=== PATIENT | male | born 1955 | race Caucasian/White ===

== ENCOUNTER → 2017-04-19 | Outpatient (CLI) | payer OTHER ==
[~2017-04-19] MED LIST: IOPAMIDOL 370 MG/ML 200 ML INFUS..BTL INJ ONE; SODIUM CHLORIDE 0.9% 250ML 250 ML ONE
--- NOTE | 2017-04-23 08:38 | Diagnostic Imaging Report ---
EXAMINATION: CT of the abdomen and pelvis with and without contrast. TECHNIQUE: Spiral CT images of the abdomen and pelvis were performed from the lung bases to the lesser trochanters before and after the intravenous administration of 150 cc of Isovue-370 and the oral administration of water per CT urogram protocol. Imaging was performed in the prone position.. Coronal and sagittal reformatted images were obtained. COMPARISON: None. CLINICAL HISTORY:Hematuria DISCUSSION: ABDOMEN/PELVIS: LOWER THORAX:Unremarkable. HEPATOBILIARY: Dystrophic calcification in segment 7. Otherwise no focal hepatic lesion. No intrahepatic biliary ductal dilatation. Status post cholecystectomy. SPLEEN: No splenomegaly. Subcentimeter hypoattenuating lesion projecting posteriorly from the spleen is too small to further characterize though may represent a small cyst. PANCREAS: No focal masses or ductal dilatation. ADRENALS: No adrenal nodules. KIDNEYS/URETERS: Subcentimeter hypoattenuating lesion projects from the upper pole of the right kidney, too small to further characterize though likely represent small cyst. 1 cm cyst within the posterior aspect of the right upper pole. Additional subcentimeter hypoattenuating foci within both kidneys, also too small to further characterize though likely represent additional small cysts. No solid renal mass lesion. 6 mm nonobstructing calculus in the interpolar left kidney seen on series 3 image 86. 4-5 mm calculus at the left right ureteropelvic junction seen on series 3 image 94, without hydronephrosis. 3-4 mm nonobstructing right lower pole calculus seen on series 3 image 96. No additional renal, ureteral, or bladder calculi. No additional filling defects in the upper collecting systems, ureters, or urinary bladder. PELVIC ORGANS/BLADDER: A large right inguinal hernia contains a portion of the right inferolateral urinary bladder, which is collapsed with mild thickening of the wall. The urinary bladder is otherwise unremarkable. The prostate is enlarged measuring 5.7 cm transversely. PERITONEUM/RETROPERITONEUM: No ascites or pneumoperitoneum. LYMPH NODES: No pelvic sidewall, retroperitoneal, or mesenteric lymphadenopathy. VESSELS: Limited evaluation secondary to contrast timing for CT urogram protocol. There is mild atherosclerotic calcification of the abdominal aorta, branch vessels, and iliac arterial systems without aneurysmal dilatation. GI TRACT: There are diverticula scattered along the descending and sigmoid colon without wall thickening or adjacent inflammation. The appendix is normal. There is no small bowel dilatation to suggest obstruction. Incidental note of a posterior mediastinal or distal esophageal submucosal lipoma measuring approximate 4.5 cm as seen on series 6 image 21. BONES AND SOFT TISSUE: No osseous destructive lesions. Multilevel degenerative disc changes and facet arthropathy of the lumbar spine. Large right inguinal hernia contains fat and a segment of the urinary bladder as discussed above. IMPRESSION: 4-5 mm right ureteropelvic junction calculus without hydronephrosis. 3-4 mm nonobstructing right lower pole renal calculus. 6 mm nonobstructing left interpolar renal calculus. Right renal cyst; additional subcentimeter hypoattenuating lesions are too small to further characterize but likely represent cysts as well. Large right inguinal hernia contains fat and a portion of the right inferolateral urinary bladder, with associated wall thickening. Atherosclerotic vascular disease. Large bowel diverticulosis without evidence of diverticulitis. Signed by: Dr. Koby Dan M.D. on 04/23/2017 8:35 AM
== END ==
LOC: CT 16:53
PROVIDERS: ATTEND Urology
DX: R31.9 Hematuria, unspecified (principal)
CPT/HCPCS: 74178; J7050; Q9967

== ENCOUNTER → 2017-07-10 | Outpatient (CLI) | payer OTHER ==
--- NOTE | 2017-07-10 07:32 | Diagnostic Imaging Report ---
PROCEDURE:X-RAY ABDOMEN - KUB COMPARISON:CT abdomen and pelvis 04/23/2017. INDICATIONS:MICROSCOPIC HEMATURIA FINDINGS: 6 mm calculus projects over the left renal shadow, similar in appearance to that described on the comparison CT from March 2017. Additional smaller renal calculi described on the comparison CT are not identified by plain radiography. No mass effect or organomegaly. Surgical clips related to prior cholecystectomy. Regional skeletal structures are intact. CONCLUSION: 6 mm calculus projects over the left renal shadow. Additional small renal calculi described on the comparison CT examination are not identified by plain radiography. Dictated by: Koby Dan M.D. on 07/10/2017 at 7:33 Electronically approved by: Koby Dan M.D. on 07/10/2017 at 7:33
== END ==
LOC: RAD 06:44
PROVIDERS: ATTEND Urology
DX: R31.9 Hematuria, unspecified (principal)
CPT/HCPCS: 74018

== ENCOUNTER 2017-07-22 07:20 | Observation (INO) | payer OTHER ==
[~2017-07-22] VITALS: Ht 188 cm; Wt 127.0 kg
--- OUTSIDE RECORDS SUMMARY | 2017-07-22 07:23 | XMS REPORT ---
Author Author [facility] Address Unknown Phone Unavailable Care Team Providers Care Pot Builder Name Role Phone FRANCO TEJADA Unavailable Unavailable Problems This patient has no known problems. Allergies, Adverse Reactions, Alerts This patient has no known allergies or adverse reactions. Medications This patient has no known medications. Results Test Description Test Time Test Comments Text Results Atomic Results Result Comments ABDOMEN-1VIEW (KUB) [place] [address] Patient Name: DESIREE KIRAN MR #: [id number] : 1955 Age/Sex: 61/M Req # : [id number] Adm Physician: Ordered by: FRANCO TEJADA MD Report #: [id number] Location: [facility] Room/Bed: Procedure: [id number] DX/ABDOMEN-1VIEW (KUB) Exam Date: Exam Time: REPORT STATUS: Signed PROCEDURE: X-RAY ABDOMEN - KUB COMPARISON: CT abdomen and pelvis 04/23/2017. INDICATIONS: MICROSCOPIC HEMATURIA FINDINGS: 6 mm calculus projects over the left renal shadow, similar in appearance to that described on the comparison CT from March 2017. Additional smaller renal calculi described on the comparison CT are not identified by plain radiography. No mass effect or organomegaly. Surgical clips related to prior cholecystectomy. Regional skeletal structures are intact. CONCLUSION: 6 mm calculus projects over the left renal shadow. Additional small renal calculi described on the comparison CT examination are not identified by plain radiography. Dictated by: Jose Martínez M.D. on 07/10/2017 at 7:33 Electronically approved by: Jose Martínez M.D. on 07/10/2017 at 7:33 Dictated By: JOSE MARTÍNEZ MD 2 Transcribed By: LEONORA on 07/10/17732 COPY TO: FRANCO TEJADA MD CT ABDOMEN/PELVIS WOW [place] [address] Patient Name: DESIREE KIRAN MR #: [id number] : 1955 Age/Sex: 61/M Req # : [id number] Adm Physician: Ordered by: FRANCO TEJADA MD Report #: [id number] Location: CT Room/Bed: Procedure: [id number] CT/CT ABDOMEN/PELVIS WO Exam Date: 04/19/17 Exam Time: 1825 REPORT STATUS: Signed EXAMINATION: CT of the abdomen and pelvis with and without contrast. TECHNIQUE: Spiral CT images of the abdomen and pelvis were performed from the lung bases to the lesser trochanters before and after the intravenous administration of 150 cc of Isovue-370 and the oral administration of water per CT urogram protocol. Imaging was performed in the prone position.. Coronal and sagittal reformatted images were obtained. COMPARISON: None. CLINICAL HISTORY: Hematuria DISCUSSION: ABDOMEN/PELVIS: LOWER THORAX: Unremarkable. HEPATOBILIARY: Dystrophic calcification in segment 7. Otherwise no focal hepatic lesion. No intrahepatic biliary ductal dilatation. Status post cholecystectomy. SPLEEN: No splenomegaly. Subcentimeter hypoattenuating lesion projecting posteriorly from the spleen is too small to further characterize though may represent a small cyst. PANCREAS: No focal masses or ductal dilatation. ADRENALS: No adrenal nodules. KIDNEYS/URETERS: Subcentimeter hypoattenuating lesion projects from the upper pole of the right kidney, too small to further characterize though likely represent small cyst. 1 cm cyst within the posterior aspect of the right upper pole. Additional subcentimeter hypoattenuating foci within both kidneys, also too small to further characterize though likely represent additional small cysts. No solid renal mass lesion. 6 mm nonobstructing calculus in the interpolar left kidney seen on series 3 image 86. 4-5 mm calculus at the left right ureteropelvic junction seen on series 3 image 94, without hydronephrosis. 3-4 mm nonobstructing right lower pole calculus seen on series 3 image 96. No additional renal, ureteral, or bladder calculi. No additional filling defects in the upper collecting systems, ureters, or urinary bladder. PELVIC ORGANS/BLADDER: A large right inguinal hernia contains a portion of the right inferolateral urinary bladder, which is collapsed with mild thickening of the wall. The urinary bladder is otherwise unremarkable. The prostate is enlarged measuring 5.7 cm transversely. PERITONEUM/RETROPERITONEUM: No ascites or pneumoperitoneum. LYMPH NODES: No pelvic sidewall, retroperitoneal, or mesenteric lymphadenopathy. VESSELS: Limited evaluation secondary to contrast timing for CT urogram protocol. There is mild atherosclerotic calcification of the abdominal aorta, branch vessels, and iliac arterial systems without aneurysmal dilatation. GI TRACT: There are diverticula scattered along the descending and sigmoid colon without wall thickening or adjacent inflammation. The appendix is normal. There is no small bowel dilatation to suggest obstruction. Incidental note of a posterior mediastinal or distal esophageal submucosal lipoma measuring approximate 4.5 cm as seen on series 6 image 21. BONES AND SOFT TISSUE: No osseous destructive lesions. Multilevel degenerative disc changes and facet arthropathy of the lumbar spine. Large right inguinal hernia contains fat and a segment of the urinary bladder as discussed above. IMPRESSION: 4-5 mm right ureteropelvic junction calculus without hydronephrosis. 3-4 mm nonobstructing right lower pole renal calculus. 6 mm nonobstructing left interpolar renal calculus. Right renal cyst; additional subcentimeter hypoattenuating lesions are too small to further characterize but likely represent cysts as well. Large right inguinal hernia contains fat and a portion of the right inferolateral urinary bladder, with associated wall thickening. Atherosclerotic vascular disease. Large bowel diverticulosis without evidence of diverticulitis. Signed by: Dr. Jose aMrtínez M.D. on 04/23/2017 8:35 AM Dictated By: JOSE MARTÍNEZ MD 4 Transcribed By: KEYA on 04/23/17834 COPY TO: FRANCO TEJADA MD
[2017-07-22] MEDS ORDERED: KETOROLAC TROMETHAMINE 30 MG/ML VIAL IV STA (07:47)
[2017-07-22] MEDS ORDERED: ONDANSETRON HCL INJ 2 MG/ML VIAL IV STA (07:47)
[2017-07-22] MEDS ORDERED: DICYCLOMINE HCL 20 MG/2 ML VIAL IM ONE (08:00)
[2017-07-22] MEDS ORDERED: MORPHINE SULFATE 2 MG/ML SYR ONE (08:02)
[2017-07-22 08:14] LABS: BASOPHILS % 0.6 % (0.0-1.0); EOSINOPHILS # (AUTO) 0.1 (0.0-0.4); EOSINOPHILS % 1.7 % (0.0-6.0); HEMATOCRIT 46.7 % (38.2-49.6); HEMOGLOBIN 16.6 g/dL (14.0-18.0); LYMPHOCYTES # (AUTO) 2.3 (1.0-3.2); LYMPHOCYTES % 32.3 % (18.0-39.1); MEAN CORPUSCULAR HEMOGLOBIN 35.9 pg (28-32); MEAN CORPUSCULAR HGB CONC 35.5 g/dL (31-35); MEAN CORPUSCULAR VOLUME 100.9 fL (81-99); MONOCYTES # (AUTO) 0.7 (0.2-0.8); MONOCYTES % 10.2 % (4.4-11.3); NEUTROPHILS # (AUTO) 3.8 (2.1-6.9); NEUTROPHILS % 54.8 % (38.7-80.0); PLATELET COUNT 250 x10e3/uL (140-360); RED BLOOD COUNT 4.63 x10e6/uL (4.3-5.7); RED CELL DISTRIBUTION WIDTH 13.1 % (11.7-14.4)
[2017-07-22] MEDS ORDERED: MORPHINE SULFATE 5 MG/ML VIAL IV ONE ×2 (08:15→10:00)
[2017-07-22] MEDS ORDERED: MORPHINE SULFATE 2 MG/ML SYR IV SCH ×2 (08:30→10:00)
[2017-07-22 08:37] LABS: ALBUMIN 3.9 g/dL (3.5-5.0); ALBUMIN/GLOBULIN RATIO 1.3 (0.8-2.0); ANION GAP 12.9 mmol/L (8-16); CALCIUM 9.1 mg/dL (8.4-10.2); CREATININE, SERUM 1.23 mg/dL (0.72-1.25); POTASSIUM 3.9 mmol/L (3.5-5.1)
--- NOTE | 2017-07-22 09:56 | Diagnostic Imaging Report ---
PROCEDURE: CT ABDOMEN AND PELVIS WITHOUT CONTRAST COMPARISON:[facility], CT, CT ABDOMEN/PELVIS WOW, 04/19/2017, 18:21. INDICATIONS:Right flank pain TECHNIQUE: Stone protocol Volumetric CT abdomen and pelvis. No intravenous or enteric contrast. Multiplanar reformatted images. DLP: 1145.78 FINDINGS: Mild bibasilar interstitial scar. Lung bases otherwise clear. Normal heart size. Liver: Normal Gallbladder: Cholecystectomy. No bile duct dilation. Pancreas: Normal Spleen: Normal Adrenal glands: Normal Urinary bladder: The right inferior margin of the urinary bladder extends into a large right inguinal hernia. Otherwise, normal. Prostate and seminal vesicles: Normal Kidneys: Right: 0.3 and 0.4 x 0.7 cm stones at the distal right ureter (image 161, series 3; i93,s401) with accompanying mild hydronephrosis. No additional right kidney stones. Left: 0.6 cm nonobstructive superior pole stone (image 61, series 3). Otherwise, normal Bowel: Normal caliber. Normal appendix. Sigmoid diverticulosis. No large fat periesophageal hiatal hernia. Peritoneum: Normal Vasculature: Mild scattered atherosclerosis. Otherwise, normal caliber. Lymph nodes: Normal Skeleton: Intact. Mild multilevel degenerative disc disease and facet arthropathy. Soft tissues: Large fat and bladder containing right inguinal hernia. No small left inguinal hernia. CONCLUSION: 1. 2 stones at the very distal segment of the right ureter. The smaller proximal stone measures 0.3 cm and the larger distal stone measures 0.4 x 0.7 cm. Accompanying mild hydronephrosis. 2. Fat and urinary bladder containing right inguinal hernia. 3. Diverticulosis. Dictated by: David Blunt M.D. on 07/22/2017 at 9:57 Electronically approved by: David Blunt M.D. on 07/22/2017 at 9:57
[2017-07-22] MEDS ORDERED: HYDROMORPHONE 1MG/1ML INJ IV STA (10:38)
[2017-07-22] MEDS ORDERED: HYOSCYAMINE SULFATE 0.5 MG/ML AMP IV ONE (10:45)
[2017-07-22] MEDS ORDERED: HYOSCYAMINE SULFATE 0.5 MG/ML AMP IV PRN (15:45)
[2017-07-22] MEDS ORDERED: HYDROMORPHONE 1MG/1ML INJ IV PRN (15:45)
[2017-07-22] MEDS ORDERED: ONDANSETRON HCL INJ 2 MG/ML VIAL IV PRN ×2 (15:45)
[2017-07-22] MEDS: SODIUM CHLORIDE 0.9% 1000ML 1,000 ML IV SCH (17:04)
[2017-07-22] MEDS: HYDROMORPHONE 1MG/1ML INJ IV PRN (17:04)
--- NOTE | 2017-07-22 17:58 | History and Physical ---
CLINICAL HISTORY: This is a 61-year-old white man, a patient of Dr. Abundio Hernandez, who is seen in the emergency room of [facility] because of right flank pain due to a right kidney stone. This patient is known to have benign prostatic hypertrophy followed by Dr. Lau. He had hematuria and was found to have kidney stones bilaterally. Lithotripsy is being planned for the 12th of this month. In the meantime, he developed severe right flank pains, came to the emergency room, was found to have right ureterolithiasis. He is being admitted for pain control. PAST MEDICAL HISTORY: Is remarkable for benign prostatic hypertrophy. He is on terazosin 5 mg p.o. per day. He is on no other medications. PERSONAL AND SOCIAL HISTORY: He has not smoked for 30 years. Denies drinking. 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 FAMILY HISTORY: Mother had leukemia. Two sisters with ovarian cancer and lymphoma respectively. Father had dementia. REVIEW OF SYSTEMS: Noncontributory. PHYSICAL EXAMINATION: GENERAL: He is alert, coherent, appears to be comfortable. VITAL SIGNS: Stable. CARDIOVASCULAR: Jugular veins were not distended. S1 and S2 were regular. There are no appreciable murmurs. LUNGS: Clear. ABDOMEN: Soft. Bowel sounds are present. EXTREMITIES: Show no cyanosis, clubbing or edema. LABORATORY STUDIES: Electrolytes are normal, chloride 109, glucose 127. White count 6900, hemoglobin 16.6, MCV is 100.9. Urinalysis is not available. CT scan showed the kidney stones. IMPRESSION: 1. Right flank pain with kidney stones with history of bilateral nephrolithiasis with lithotripsy already scheduled. 1. Benign prostatic hypertrophy. RECOMMENDATIONS: Consult urology, Dr. Damon, with Dr. Lau out of town at this point. Continue his terazosin. Job#: [id number] EV cc:JOSIE BHATKA MD cc:JESSICA DAMON MD
[2017-07-22] MEDS: TERAZOSIN HCL 5 MG CAP PO SCH (21:26)
[2017-07-22 21:53] LABS: COLOR,URINE YELLOW (YELLOW)
[2017-07-22 21:54] LABS: BILIRUBIN,URINE NEGATIVE (NEGATIVE); CLARITY,URINE SL CLOUDY (CLEAR); KETONES,URINE NEGATIVE (NEGATIVE); LEUKOCYTE ESTERASE ,URINE NEGATIVE (NEGATIVE); NITRITE,URINE NEGATIVE (NEGATIVE); PROTEIN,URINE DIPSTICK NEGATIVE (NEGATIVE); URINE UROBILINOGEN 0.2 mg/dL (0.2 - 1)
[2017-07-22 21:59] VITALS: BP 131/79
[2017-07-22 22:06] LABS: BACTERIA,URINE FEW /HPF; EPITHELIAL CELLS,URINE MODERATE /LPF
[2017-07-22 22:11] VITALS: BP 131/79
[2017-07-22 22:46] VITALS: BP 131/79
[2017-07-23] VITALS (8 sets, daily range): BP systolic 106–152; BP diastolic 56–85
[2017-07-23] MEDS: SODIUM CHLORIDE 0.9% 1000ML 1,000 ML IV SCH ×4 (00:17→15:35)
[2017-07-23 06:48] LABS: BASOPHILS % 0.4 % (0.0-1.0); EOSINOPHILS # (AUTO) 0.1 (0.0-0.4); EOSINOPHILS % 1.6 % (0.0-6.0); HEMATOCRIT 43.3 % (38.2-49.6); HEMOGLOBIN 14.9 g/dL (14.0-18.0); LYMPHOCYTES # (AUTO) 2.1 (1.0-3.2); LYMPHOCYTES % 27.5 % (18.0-39.1); MEAN CORPUSCULAR HGB CONC 34.4 g/dL (31-35); MEAN CORPUSCULAR VOLUME 104.6 fL (81-99); MONOCYTES # (AUTO) 0.8 (0.2-0.8); MONOCYTES % 10.8 % (4.4-11.3); NEUTROPHILS # (AUTO) 4.6 (2.1-6.9); NEUTROPHILS % 59.3 % (38.7-80.0); PLATELET COUNT 216 x10e3/uL (140-360); RED BLOOD COUNT 4.14 x10e6/uL (4.3-5.7); RED CELL DISTRIBUTION WIDTH 13.4 % (11.7-14.4)
[2017-07-23 07:18] LABS: ALANINE AMINOTRANSFERASE 21 IU/L (0-55); ALBUMIN 3.2 g/dL (3.5-5.0); ALBUMIN/GLOBULIN RATIO 1.2 (0.8-2.0); ALKALINE PHOSPHATASE 80 IU/L (40-150); ANION GAP 11.1 mmol/L (8-16); BLOOD UREA NITROGEN 21 mg/dL (7-26); BUN/CREATININE RATIO 18 (6-25); CALCIUM 8.4 mg/dL (8.4-10.2); CARBON DIOXIDE 25 mmol/L (22-29); CHLORIDE 110 mmol/L (98-107); EST GLOMERULAR FILTRATION RATE > 60 ML/MIN (60-); GLUCOSE 105 mg/dL (74-118); POTASSIUM 4.1 mmol/L (3.5-5.1); SODIUM 142 mmol/L (136-145)
[2017-07-23] MEDS: HYDROMORPHONE 1MG/1ML INJ IV PRN ×5 (08:11→18:21)
[2017-07-23] MEDS ORDERED: HYDROMORPHONE 1MG/1ML INJ IV STA ×2 (09:24→10:02)
[2017-07-23] MEDS: TERAZOSIN HCL 5 MG CAP PO SCH (21:25)
[2017-07-23] MEDS: DOCUSATE SODIUM 100 MG CAP PO SCH (21:25)
[2017-07-24] VITALS: BP 184/88
[2017-07-24] MEDS: HYDROMORPHONE 1MG/1ML INJ IV PRN
[2017-07-24 04:00] VITALS: BP 110/62
[2017-07-24 08:00] VITALS: BP 130/70
[2017-07-24] MEDS: DOCUSATE SODIUM 100 MG CAP PO SCH ×2 (09:00→16:00)
[2017-07-24 11:40] LABS: FOLATE 7.7 ng/mL (7.0-15.4)
[2017-07-24 12:00] VITALS: BP 134/69
[2017-07-24] MEDS ORDERED: IOPAMIDOL 300MG/ML 50ML INFUS..BTL IV ONE (13:03)
[2017-07-24] MEDS ORDERED: LEVOFLOXACIN 500MG/D5W 100ML 100 ML IV ONE (13:24)
--- NOTE | 2017-07-24 14:00 | Consultation ---
DDICTATION ERROR SEE OTHER REPORT MTDD
--- NOTE | 2017-07-24 14:24 | Consultation ---
DATE OF CONSULTATION: July 24, 2017 REASON FOR CONSULTATION: Kidney stones. HISTORY OF PRESENT ILLNESS: Mr. Moreno is a 61-year-old male patient of Dr. Negro, who presented with intractable colic on the right side. He has kidney stones on the left side. PAST MEDICAL HISTORY: Please see office chart. MEDICATIONS: Please see MAR. ALLERGIES: NKDA. SOCIAL HISTORY: Does not smoke or drink. FAMILY HISTORY: Negative for urological malignancies. REVIEW OF SYSTEMS: Noncontributory. PHYSICAL EXAMINATION GENERAL: A middle-aged male in no acute distress. VITALS: Currently afebrile, pulse 72, respirations 16, blood pressure 130/70. HEENT: Sclerae anicteric. NECK: Supple. BACK: Without costovertebral angle tenderness bilaterally. ABDOMEN: Soft, nontender and nondistended. No palpable mass. No palpable hernias. : Normal external male genitalia. EXTREMITIES: No edema in the lower extremities. PSYCH: Alert and appropriate. SKIN: Intact. Normal color. PERTINENT LABORATORY DATA: CT scan revealing a 6 mm left lower pole stone, 7 mm left lower pole, 3 and 4 mm right UPJ stones, right hydronephrosis. Sodium 142, potassium 4.5, chloride 110, bicarb 25, BUN 21, creatinine 1.2, glucose 110. Hemoglobin 14, hematocrit 43, platelet count 216,000, white cell count 7700. Urinalysis with greater than 20 reds. IMPRESSION 1. Renal calculi. 2. Ureteral calculi. 3. Hydronephrosis. 4. BPH. 5. Right inguinal hernia. 6. Hypertension. 7. Microscopic hematuria. PLAN: Will employ stent placement on the right side. Job#: [id number] FANI
--- NOTE | 2017-07-24 14:55 | Operative Report ---
DATE OF PROCEDURE: PREOPERATIVE DIAGNOSES 1. Microscopic hematuria. 2. Right ureteral calculus. POSTOPERATIVE DIAGNOSES 1. Microscopic hematuria. 2. Right ureteral calculus. PROCEDURES 1. Cystourethroscopy with left ureteral catheterization and left retrograde pyelogram (separate procedure for microscopic hematuria). 2. Right-sided ureteroscopy, laser lithotripsy, and stent placement (separate procedure for ureteral calculus). 3. Supervision of fluoroscopy. 4. Interpretation of retrograde pyelography. ANESTHESIA: General. ESTIMATED BLOOD LOSS: Minimal. COMPLICATIONS: None. INDICATIONS: Mr. Moreno is a very pleasant, 61-year-old male with right ureteral calculus and intractable pain, presenting for stent placement. He and I had a long discussion regarding the alternatives, risks and benefits, and he elected to proceed with all indicated procedures. PROCEDURE IN DETAIL: Informed consent was obtained. The patient was taken to the operative suite and placed supine on the table and underwent general anesthesia by the anesthesia service. He was placed in the dorsal lithotomy position. He was sterilely prepped and draped in the standard fashion for cystoscopy. A 22.5-Thai cystoscope was inserted per urethra. A normal urethra was noted. Panendoscopy of the bladder revealed a stone at the level of the right ureteral orifice. With moderate difficulty, a guidewire was passed proximal to this. Left retrograde pyelogram revealed stones in the lower pole of the left kidney. With the inability to dilate, a ureteroscope was advanced to the level of the stone. Utilizing a 365 micron laser fiber on the right side, the stone was obliterated. A 6 x 28 ureteral stent was then placed with a coil in the renal pelvis and a coil in the bladder. The patient's bladder was drained. He was awakened from anesthesia and transported to the recovery room in excellent condition. SUPERVISION OF FLUOROSCOPY: I was present throughout the entire procedure and supervised the use of fluoroscopy. There was no radiologist present. Attention was turned toward the left and right ureteral orifices, which were catheterized. A retrograde pyelogram was performed on the left which revealed left lower pole stones. Multiple right ureteral calculi with right hydronephrosis. Postoperatively the right-sided stent was in good position. Job#: [id number]
[2017-07-24 16:00] VITALS: BP 119/70
[2017-07-24] MEDS ORDERED: MIDAZOLAM HCL 2 MG/2 ML VIAL ONE (19:13)
[2017-07-24] MEDS ORDERED: FENTANYL CITRATE/PF 100MCG/2 ML INJ ONE (19:13)
[2017-07-24] MEDS ORDERED: DEXAMETHASONE SOD PHOS INJ 4 MG/ML VIAL ONE (19:42)
[2017-07-24] MEDS ORDERED: LIDOCAINE HCL 2% LOCAL INJ 5 ML SDV VIAL INJ ONE (19:42)
[2017-07-24] MEDS ORDERED: DESFLURANE 240 ML BTL INH ONE (19:42)
[2017-07-24] MEDS ORDERED: PROPOFOL IV EMULSION 10 MG/ML 20 ML VIAL ONE (19:42)
[2017-07-24] MEDS ORDERED: ONDANSETRON HCL INJ 2 MG/ML VIAL ONE (19:42)
--- NOTE | 2017-07-25 10:03 | Discharge Summary ---
CLINICAL HISTORY: This is a 61-year-old white man admitted via the emergency room because of right kidney stone with hydronephrosis and severe pain. Please refer to my previous dictation concerning details of current illness, past medical history, personal and social history, family history, review of systems, physical examination, and initial laboratory studies. HOSPITAL COURSE: The patient was consulted in the emergency room with Dr. Iqbal, his urologist. He was previously scheduled for a urological procedure. We decided to proceed with this. His pain failed to resolve with medications. He then underwent laser right ureteroscopy with stenting with relief the pain. He was found to be stable for discharge to be followed on an outpatient basis. DISCHARGE DIAGNOSES 1. Right renal calculus with bilateral right hydronephrosis. The patient also has a left renal calculus without hydronephrosis. 2. He also has benign prostatic hypertrophy. 3. Right inguinal hernia. 4. History of hypertension. 5. Microhematuria. 6. Increased MCV at 104.6 with normal B12 and folate. As previously mentioned, this patient underwent right ureteral stent. Will follow further on an outpatient basis with Dr. Iqbal and Dr. Mati Chavarria. He was given pain medications by Dr. Iqbal. Other discharge medications are same as on admission. ANDREZ CMCULLOUGH MD Job#: [id number] RI cc:MD JESSICA BEYER MD
== END 2017-07-24 18:03 | disposition home or self-care (01) ==
LOC: ER 07:20 → ERHOLD 16:30 → IMCU 21:40
PROVIDERS: ADMIT Internal Medicine Cardiovascular Disease; ATTEND Internal Medicine Cardiovascular Disease
DX: N13.2 Hydronephrosis with renal and ureteral calculous obstruction (principal); N40.0 Benign prostatic hyperplasia without lower urinary tract symptoms; K40.90 Unilateral inguinal hernia, without obstruction or gangrene, not specified as recurrent; I10 Essential (primary) hypertension; R31.29 Other microscopic hematuria
CPT/HCPCS: 36415 ×2; 52356; 74176; 74420; 80053 ×2; 81001; 82607; 82746; 85025 ×2; 99284; C2617; G0378 ×3; J0500; J1100; J1170 ×2; J1885; J1956; J1980 ×2; J2001; J2250; J2270; J2405 ×2; J7030 ×3; Q9967

== ENCOUNTER → 2017-08-19 | Outpatient (CLI) | payer OTHER ==
--- NOTE | 2017-08-19 07:10 | Diagnostic Imaging Report ---
PROCEDURE:X-RAY ABDOMEN - KUB COMPARISON:CT abdomen and pelvis 07/22/2017. INDICATIONS:BILATERAL FLANK PAIN, HEMATURIA FINDINGS: Interval placement of a right internal ureteral stent. The proximal locking loop projects over the right renal pelvis. The distal locking loop projects over the urinary bladder to the right of midline. Previously described small calculi within the distal right ureter are not identified by plain radiography. No additional right renal or ureteral calcifications. 6 mm calcification projects over the interpolar left kidney. No additional left renal calculi or calculi projecting along the expected left ureteral course. Bowel gas pattern is nonobstructive. Regional skeletal structures are intact. CONCLUSION: Interval placement of right internal ureteral stent. Distal right ureteral calculi described on the comparison CT are no longer identified. 6 mm left interpolar renal calculus. Dictated by: Koby Dan M.D. on 08/19/2017 at 7:12 Electronically approved by: Koby Dan M.D. on 08/19/2017 at 7:12
== END ==
LOC: RAD 06:43
PROVIDERS: ATTEND Urology
DX: R31.9 Hematuria, unspecified (principal)
CPT/HCPCS: 74018

== ENCOUNTER 2017-08-23 16:47 | Emergency (ER) | payer OTHER ==
[~2017-08-23] VITALS: Ht 188 cm; Wt 127.0 kg
[~2017-08-23 16:47] MED LIST changes: -ACETAMINOPHEN/CODEINE 300MG - 30MG TAB ONE; -BELLADONNA/OPIUM 60 MG SUPP PR ONE; -CEFTRIAXONE SOD 1 GM VIAL ONE; -DEXAMETHASONE SOD PHOS INJ 4 MG/ML VIAL ONE; -FENTANYL CITRATE/PF 100MCG/2 ML INJ ONE; -GENTAMICIN 80MG/NS 100 ML 100 ML IV ONE; -IOPAMIDOL 610MG/1ML 300 MG/ML VIAL IV ONE; -LIDOCAINE HCL 2% LOCAL INJ 5 ML SDV VIAL INJ ONE; -MIDAZOLAM HCL 2 MG/2 ML VIAL ONE; -ONDANSETRON HCL INJ 2 MG/ML VIAL ONE; -PROPOFOL IV EMULSION 10 MG/ML 20 ML VIAL ONE; -SEVOFLURANE INHAL SOLN 250 ML PEN BTL ONE
[2017-08-23 18:41] LABS: BASOPHILS % 0.2 % (0.0-1.0); HEMATOCRIT 45.3 % (38.2-49.6); HEMOGLOBIN 16.3 g/dL (14.0-18.0); LYMPHOCYTES # (AUTO) 0.8 (1.0-3.2); LYMPHOCYTES % 5.8 % (18.0-39.1); MEAN CORPUSCULAR HEMOGLOBIN 36.4 pg (28-32); MEAN CORPUSCULAR VOLUME 101.1 fL (81-99); MONOCYTES # (AUTO) 0.3 (0.2-0.8); MONOCYTES % 2.5 % (4.4-11.3); NEUTROPHILS # (AUTO) 11.9 (2.1-6.9); PLATELET COUNT 242 x10e3/uL (140-360); RED BLOOD COUNT 4.48 x10e6/uL (4.3-5.7); RED CELL DISTRIBUTION WIDTH 12.6 % (11.7-14.4)
[2017-08-23 18:55] LABS: ALBUMIN 3.8 g/dL (3.5-5.0); ALBUMIN/GLOBULIN RATIO 1.2 (0.8-2.0); ANION GAP 12.8 mmol/L (8-16); CALCIUM 9.4 mg/dL (8.4-10.2); CREATININE, SERUM 1.33 mg/dL (0.72-1.25); POTASSIUM 3.8 mmol/L (3.5-5.1)
[2017-08-23] MEDS ORDERED: HYDROCODONE/APAP 10MG-325MG TAB PO ONE (19:00)
--- NOTE | 2017-08-23 19:35 | Diagnostic Imaging Report ---
EXAM: CT Abdomen and Pelvis WITHOUT contrast INDICATION: Pain COMPARISON: 07/22/2017 TECHNIQUE: Abdomen and Pelvis was scanned utilizing a multidetector helical scanner without the use of IV contrast. Coronal and sagittal reformations were obtained. IV CONTRAST: None COMPLICATIONS: None RADIATION DOSE: Total DLP: 869 mGy*cm Estimated effective dose: (DLP x 0.015 x size factor) mSv CTDIvol has been reviewed. It is below the limits set by the Radiation Protocol Committee (RPC). FINDINGS: Abdomen: Lung Bases: Linear densities lung bases suggest atelectasis. Decreased attenuation cardiac blood pool suggesting anemia. Solid Organs: Mild hepatic steatosis. Cholecystectomy changes. Mild to moderate right hydroureter with inflammatory changes about the right ureter. Nonobstructing calculus left kidney. Asymmetric to the right perinephric stranding. Remainder of solid organs unremarkable. Upper GI Tract: Fat-containing esophageal hernia. No small bowel obstructive changes. Vascularity: Minimal aortic vascular calcifications. Lymph Nodes: No suspicious adenopathy. Other: None. Pelvis: Bladder: Increased density material in dependent portion of urinary bladder. Gas present nondependent urinary bladder. Right anterior aspect of urinary bladder extends into right inguinal hernia. Other: None. Colon: Moderate diverticulosis sigmoid colon without CT evidence of diverticulitis. Appendix not inflamed. Bones: Endplate degenerative changes. IMPRESSION: 1. No renal or ureteral calculus on the right; however, there is moderate right hydroureter and moderate inflammatory changes about the ureter and renal pelvis. There is a small amount of gas present in the right renal collecting system suggesting infectious process. Recently passed stone possible. Given gas in right renal collecting system, urologic consultation recommended. 2. Nonobstructing calculus left kidney. 3. Increased density material urinary bladder consistent with blood products. Gas within the urinary bladder statistically due to recent instrumentation. 4. Right inguinal hernia with right anterior aspect of urinary bladder extending into right inguinal hernia. 5. Other findings as above. Signed by: Dr. Nixon Garcia MD on 08/23/2017 7:31 PM
[2017-08-23 20:42] LABS: BILIRUBIN,URINE NEGATIVE (NEGATIVE); CLARITY,URINE HAZY (CLEAR); COLOR,URINE RED (YELLOW); KETONES,URINE NEGATIVE (NEGATIVE); LEUKOCYTE ESTERASE ,URINE 1+ (NEGATIVE); NITRITE,URINE NEGATIVE (NEGATIVE); PROTEIN,URINE DIPSTICK 2+ (NEGATIVE); URINE UROBILINOGEN 0.2 mg/dL (0.2 - 1)
[2017-08-23 20:49] LABS: BACTERIA,URINE RARE /HPF; RBC,URINE >50 /HPF (0-5)
== END 2017-08-23 22:07 | disposition home or self-care (01) ==
LOC: ER 16:47
DX: R30.0 Dysuria (principal); R31.9 Hematuria, unspecified; N20.1 Calculus of ureter
CPT/HCPCS: 36415; 74176; 80053; 81001; 85025; 87086; 99283

== ENCOUNTER → 2017-08-23 | Day surgery (SDC) | payer OTHER ==
[~2017-08-23] MED LIST changes: +ACETAMINOPHEN/CODEINE 300MG - 30MG TAB ONE; +BELLADONNA/OPIUM 60 MG SUPP PR ONE; +CEFTRIAXONE SOD 1 GM VIAL ONE; +DEXAMETHASONE SOD PHOS INJ 4 MG/ML VIAL ONE; +DOXAZOSIN MESYLA2 MG PO; +FENTANYL CITRATE/PF 100MCG/2 ML INJ ONE; +GENTAMICIN 80MG/NS 100 ML 100 ML IV ONE; -IOPAMIDOL 370 MG/ML 200 ML INFUS..BTL INJ ONE; +IOPAMIDOL 610MG/1ML 300 MG/ML VIAL IV ONE; +LIDOCAINE HCL 2% LOCAL INJ 5 ML SDV VIAL INJ ONE; +MIDAZOLAM HCL 2 MG/2 ML VIAL ONE; +ONDANSETRON HCL INJ 2 MG/ML VIAL ONE; +PROPOFOL IV EMULSION 10 MG/ML 20 ML VIAL ONE; +SEVOFLURANE INHAL SOLN 250 ML PEN BTL ONE; -SODIUM CHLORIDE 0.9% 250ML 250 ML ONE
--- OUTSIDE RECORDS SUMMARY | 2017-08-23 07:58 | XMS REPORT | Continuity of Care Document ---
Author Author [facility] Organization [facility] Address [address] [place] [address] Phone Unavailable Care Team Providers Care Turntable Man Name Role Phone YONY, RUBEN PCP Insurance Providers Guarantor ColumbaEugenio Address [address] [place] [address] Email [email or web address] Payer [facility] Policy Number [id number] Subscriber's Name Elin Waterman Relationship 01 Group Number [id number] Group Name [employer] Effective Date 08 Advance Directives Directive Response Recorded Date/Time Does the patient have an advance directive? Yes 07/22/17 10:04pm If yes, is advance directive on file with [facility]? No 07/22/17 10:04pm If not on file with [facility] will patient provide a copy? No 07/22/17 10:04pm Do you have a Directive to Physician? No 07/22/17 8:43am Do you have a Medical Power of Asset Accountant? No 07/22/17 8:43am Do you have an out of hospital Do Not Resuscitate Order? No 07/22/17 8:43am Do you have any special needs we should be aware of? No 07/22/17 8:43am Do you have a support person here with you today? Yes 07/22/17 8:43am Did patient receive Notice of Privacy Practices? Yes 07/22/17 8:43am Did patient receive patient rights and responsibilities? Yes 07/22/17 8:43am Problems Medical Problem Onset Date Status Intractable abdominal pain Unknown Kidney stones Unknown Medications No known medications. Social History Social History Problem Response Recorded Date/Time Onset Date Status Hx Psychiatric Problems No 07/22/2017 10:04pm Not Applicable Not Applicable Hx Eating Disorder No 07/22/2017 10:04pm Not Applicable Not Applicable Hx Substance Use Disorder No 07/22/2017 10:04pm Not Applicable Not Applicable Hx Depression No 07/22/2017 10:04pm Not Applicable Not Applicable Hx Alcohol Use No 07/22/2017 10:04pm Not Applicable Not Applicable Hx Substance Use Treatment No 07/22/2017 10:04pm Not Applicable Not Applicable Hx Physical Abuse No 07/22/2017 10:04pm Not Applicable Not Applicable Smoking Status Start Date Stop Date Former smoker Hospital Discharge Instructions No hospital discharge instruction information available. Plan of Care Discharge Date 07/24/17 6:03pm Disposition HOME, SELF-CARE Instructions/Education Provided Cystoscopy Kidney Stones Prescriptions See Medication Section Functional Status Query Response Date Recorded Assistive Devices None July 22, 2017 9:59pm Ambulation Ability Independent July 22, 2017 9:59pm Toileting Ability Independent July 22, 2017 9:59pm Allergies, Adverse Reactions, Alerts No known allergies. Immunizations No immunization information available. Vital Signs Acute Vital Signs Vital Response Date/Time Temperature (Fahrenheit) 96.0 degrees F (97.6 - 99.5) 07/24/2017 4:00pm Pulse Pulse Rate (adult) 81 bpm (60 - 90) 07/24/2017 4:00pm Respiratory Rate 18 bpm (12 - 24) 07/24/2017 4:00pm Blood Pressure 119/70 mm Hg 07/24/2017 4:00pm Height 6 ft 2 in 07/22/2017 7:30am Weight 280 lb 07/22/2017 7:30am Body Mass Index 35.9 kg/m^2 07/22/2017 10:04pm Results Laboratory Results Test Name Result Units Flags Reference Collection Date/Time Result Date/ Time Comments White Blood Count 7.72 x10e3/uL 4.8-10.8 07/23/2017 6:07/23/2017 6 :51am Red Blood Count 4.14 x10e6/uL L 4.3-5.7 07/23/2017 6:07/23/2017 6: 51am Hemoglobin 14.9 g/dL 14.0-18.0 07/23/2017 6:07/23/2017 6:51am Hematocrit 43.3 % 38.2-49.6 07/23/2017 6:07/23/2017 6:51am Mean Corpuscular Volume 104.6 fL # H 81-99 07/23/2017 6:07/23/2017 6 :51am Mean Corpuscular Hemoglobin 36.0 pg H 28-32 07/23/2017 6:2017 6:51am Mean Corpuscular Hemoglobin Concent 34.4 g/dL 31-35 07/23/2017 6:07/23/2017 6:51am Red Cell Distribution Width 13.4 % 11.7-14.4 07/23/2017 6:2017 6:51am Platelet Count 216 x10e3/uL 140-360 07/23/2017 6:07/23/2017 6: 51am Neutrophils (%) (Auto) 59.3 % 38.7-80.0 07/23/2017 6:07/23/2017 6: 51am Lymphocytes (%) (Auto) 27.5 % 18.0-39.1 07/23/2017 6:07/23/2017 6: 51am Monocytes (%) (Auto) 10.8 % 4.4-11.3 07/23/2017 6:07/23/2017 6: 51am Eosinophils (%) (Auto) 1.6 % 0.0-6.0 07/23/2017 6:07/23/2017 6: 51am Basophils (%) (Auto) 0.4 % 0.0-1.0 07/23/2017 6:25am 07/23/2017 6:51am IM GRANULOCYTES % 0.4 % 0.0-1.0 07/23/2017 6:25am 07/23/2017 6:51am Neutrophils # (Auto) 4.6 2.1-6.9 07/23/2017 6:25am 07/23/2017 6:51am Lymphocytes # (Auto) 2.1 1.0-3.2 07/23/2017 6:25am 07/23/2017 6:51am Monocytes # (Auto) 0.8 0.2-0.8 07/23/2017 6:25am 07/23/2017 6:51am Eosinophils # (Auto) 0.1 0.0-0.4 07/23/2017 6:25am 07/23/2017 6:51am Basophils # (Auto) 0.0 0.0-0.1 07/23/2017 6:25am 07/23/2017 6:51am Absolute Immature Granulocyte (auto 0.03 x10e3/uL 0-0.1 07/23/2017 6: 25am 07/23/2017 6:51am Urine Color YELLOW YELLOW 07/22/2017 9:45pm 07/22/2017 9:54pm Urine Clarity SL CLOUDY H CLEAR 07/22/2017 9:45pm 07/22/2017 9:54pm Urine Specific [place] 1.015 1.010-1.025 07/22/2017 9:45pm 2017 9:54pm Urine pH 5 5 - 7 07/22/2017 9:45pm 07/22/2017 9:54pm Urine Leukocyte Esterase NEGATIVE NEGATIVE 07/22/2017 9:45pm 2017 9:54pm Urine Nitrite NEGATIVE NEGATIVE 07/22/2017 9:45pm 07/22/2017 9:54pm Urine Protein NEGATIVE NEGATIVE 07/22/2017 9:45pm 07/22/2017 9:54pm Urine Glucose (UA) NEGATIVE NEGATIVE 07/22/2017 9:45pm 07/22/2017 9: 54pm Urine Ketones NEGATIVE NEGATIVE 07/22/2017 9:45pm 07/22/2017 9:54pm Urine Urobilinogen 0.2 mg/dL 0.2 - 1 07/22/2017 9:45pm 07/22/2017 9: 54pm Urine Bilirubin NEGATIVE NEGATIVE 07/22/2017 9:45pm 07/22/2017 9: 54pm Urine Blood 2+ H NEGATIVE 07/22/2017 9:45pm 07/22/2017 9:54pm Urine WBC NONE /HPF 0-5 07/22/2017 9:45pm 07/22/2017 10:06pm Urine RBC 11-20 /HPF H 0-5 07/22/2017 9:45pm 07/22/2017 10:06pm Urine Bacteria FEW /HPF NONE 07/22/2017 9:45pm 07/22/2017 10:06pm Urine Epithelial Cells MODERATE /LPF NONE 07/22/2017 9:45pm 07/22/2017 10:06pm Sodium Level 142 mmol/L 136-145 07/23/2017 6:25am 07/23/2017 7:23am Potassium Level 4.1 mmol/L 3.5-5.1 07/23/2017 6:25am 07/23/2017 7:23am Chloride Level 110 mmol/L H 98-107 07/23/2017 6:25am 07/23/2017 7:23am Carbon Dioxide Level 25 mmol/L 22-29 07/23/2017 6:25am 07/23/2017 7: 23am Anion Gap 11.1 mmol/L 8-16 07/23/2017 6:25am 07/23/2017 7:23am Blood Urea Nitrogen 21 mg/dL 7-07/23/2017 6:25am 07/23/2017 7:23am Creatinine 1.20 mg/dL 0.72-1.25 07/23/2017 6:25am 07/23/2017 7:23am BUN/Creatinine Ratio 18 6-25 07/23/2017 6:25am 07/23/2017 7:23am Estimat Glomerular Filtration Rate > 60 ML/MIN 60- 07/23/2017 6:25am 7:23am Ranges were taken from the National Kidney Disease Education Program and the National Kidney Foundation literature. Reference ranges: 60 or greater: Normal 16-59 (for 3 consecutive months): Chronic kidney disease 15 or less: Kidney failure Glucose Level 105 mg/dL 74-118 07/23/2017 6:25am 07/23/2017 7:23am Calcium Level 8.4 mg/dL 8.4-10.2 07/23/2017 6:25am 07/23/2017 7:23am Total Bilirubin 0.7 mg/dL 0.2-1.2 07/23/2017 6:25am 07/23/2017 7:23am Aspartate Amino Transf (AST/SGOT) 19 IU/L 5-34 07/23/2017 6:25am 2017 7:23am Alanine Aminotransferase (ALT/SGPT) 21 IU/L 0-55 07/23/2017 6:25am 06/2017 7:23am Total Protein 5.9 g/dL L 6.5-8.1 07/23/2017 6:25am 07/23/2017 7:23am Albumin 3.2 g/dL L 3.5-5.0 07/23/2017 6:25am 07/23/2017 7:23am Globulin 2.7 g/dL 2.3-3.5 07/23/2017 6:25am 07/23/2017 7:23am Albumin/Globulin Ratio 1.2 0.8-2.0 07/23/2017 6:25am 07/23/2017 7: 23am Alkaline Phosphatase 80 IU/L 40-150 07/23/2017 6:25am 07/23/2017 7: 23am Vitamin B12 Level 775 pg/mL 213-816 07/24/2017 10:45am 07/24/2017 11: 41am Folate 7.7 ng/mL 7.0-15.4 07/24/2017 10:45am 07/24/2017 11:41am Procedures Procedure Status Date Provider(s) Cystoscopy with retrograde pyelography Completed 07/24/17 JESSICA DAMON MD Computed tomography of abdomen and pelvis without then with contrast Active 04/19/[address] of abdomen and pelvis without contrast Active 07/22/17 MARGARET WHITE MD Encounters Encounter Location Arrival/Admit Date Discharge/Depart Date Attending Provider Discharged Inpatient (obs) [facility] 07/22/17 4:30pm 08/07 6:03pm ANDREZ MCCULLOUGH MD Registered Clinic [facility] 07/10/17 6:44am FRANCO TEJADA MD Registered Clinic [facility] 04/19/17 4:53pm FRANCO TEJADA MD
[2017-08-23 09:13] LABS: BASOPHILS % 0.6 % (0.0-1.0); EOSINOPHILS # (AUTO) 0.2 (0.0-0.4); EOSINOPHILS % 2.8 % (0.0-6.0); HEMATOCRIT 43.5 % (38.2-49.6); HEMOGLOBIN 15.2 g/dL (14.0-18.0); LYMPHOCYTES # (AUTO) 2.1 (1.0-3.2); LYMPHOCYTES % 30.8 % (18.0-39.1); MEAN CORPUSCULAR HEMOGLOBIN 35.6 pg (28-32); MEAN CORPUSCULAR HGB CONC 34.9 g/dL (31-35); MEAN CORPUSCULAR VOLUME 101.9 fL (81-99); MONOCYTES # (AUTO) 0.7 (0.2-0.8); MONOCYTES % 10.4 % (4.4-11.3); NEUTROPHILS # (AUTO) 3.7 (2.1-6.9); NEUTROPHILS % 55.1 % (38.7-80.0); PLATELET COUNT 222 x10e3/uL (140-360); RED BLOOD COUNT 4.27 x10e6/uL (4.3-5.7); RED CELL DISTRIBUTION WIDTH 12.7 % (11.7-14.4)
--- NOTE | 2017-08-23 09:17 | Diagnostic Imaging Report ---
PROCEDURE:X-RAY ABDOMEN - KUB COMPARISON:Abdomen 2 views 08/19/2017. INDICATIONS:PREOP - RIGHT STENT REMOVAL FINDINGS: There is a non-obstructed bowel-gas pattern. Right ureteral stent is present and in proper position. There are no calcifications projected over the renal shadows, expected course of the ureters or bladder. Degenerative changes of the lumbar spine. There are no acute osseous abnormalities. The lung bases are clear. CONCLUSION: No acute radiographic abnormality. Dictated by: Agustin Velez M.D. on 08/23/2017 at 9:19 Electronically approved by: Agustin Velez M.D. on 08/23/2017 at 9:19
[2017-08-23 09:35] LABS: BLOOD UREA NITROGEN 21 mg/dL (7-26); BUN/CREATININE RATIO 19 (6-25); CALCIUM 9.2 mg/dL (8.4-10.2); CARBON DIOXIDE 24 mmol/L (22-29); CHLORIDE 110 mmol/L (98-107); CREATININE, SERUM 1.08 mg/dL (0.72-1.25); EST GLOMERULAR FILTRATION RATE > 60 ML/MIN (60-); GLUCOSE 101 mg/dL (74-118); SODIUM 143 mmol/L (136-145)
--- NOTE | 2017-10-09 02:27 | Operative Report ---
DATE OF PROCEDURE: August 23, 2017 PREOPERATIVE DIAGNOSES 1. Left nephrolithiasis. 2. Right ureterolithiasis. 3. Right indwelling ureteral stent. POSTOPERATIVE DIAGNOSES 1. Left nephrolithiasis. 2. Right ureterolithiasis. 3. Right indwelling ureteral stent. OPERATIONS PERFORMED 1. Left-sided extracorporeal shockwave lithotripsy (separate procedure performed for the left nephrolithiasis). 2. Cystourethroscopy with complicated removal of right indwelling ureteral stent (separate procedure performed with separate scope for the diagnosis of the stent). 3. Right ureteroscopy with stone manipulation and extraction (separate procedure performed for the ureterolithiasis). 4. Radiological services for supervision and interpretation of ureteroscopy. 5. Interpretation of retrograde ureteropyelography. 6. Supervision of fluoroscopy. No radiologist present. ANESTHESIA: General. COMPLICATIONS: None. CLINICAL SUMMARY: Eugenio Moreno is a 62-year-old man with nephrolithiasis and indwelling ureteral stent. He has undergone previous treatment. He is brought for a staged procedure. He is aware of the risks of bleeding, infection, injury to adjacent structures, need for additional procedures, and elected to proceed. OPERATIVE PROCEDURE IN DETAIL: Informed consent was verified. Eugenio Moreno was properly identified, taken to the operating room, placed on the lithotripsy table in a supine position. Anesthesia was uneventfully begun. The patient was then carefully and gently re-positioned in the dorsal lithotomy position with all pressure points well padded. The patient's left middle caliceal 6-mm stone was localized with biplanar fluoroscopy. A total of 3000 shocks was delivered with some fragmentation noted. The 22.5-[place] cystoscope sheath with a visual obturator in place was atraumatically inserted in patient's urethra. It was guided down the unremarkable distal urethra past a normal sphincteric region through the prostate bed which was significant for bilobar prostatic hypertrophy with kissing lateral lobes and visual obstruction. Panendoscopy of the urinary bladder revealed no suspicious mucosal lesions. No tumors, no stones. Mild trabeculations were noted. There was a stent emerging from the right ureteral orifice. A guidewire was then placed alongside the stent and guided of the patient's kidney. The stent was then grasped, completely removed and discarded. The semi-rigid ureteroscope was then placed alongside the guidewire and guided into the patient's ureter. We identified a stone. The stone was grasped with a tipless basket and atraumatically extracted and sent for chemical analysis. Over the guidewire, a flexible ureteroscope was then placed. It was guided into the patient's kidney. Careful panendoscopy revealed Pedro plaques, but no stones within the urinary bladder. We carefully re-examined the ureter as we exited it. It also exhibited no evidence of stones nor strictures nor tumors. The patient's bladder was drained. Cystoscope was withdrawn. A belladonna and opium suppository was placed revealing a 40-g prostate that was smooth, nonfluctuant without any nodules. The patient was then uneventfully reversed from anesthesia and taken to recovery room in stable condition. There were no complications to the procedure. He tolerated the procedure well. Explicit postop instructions were given. We will follow the patient up in the office. Upon followup, we plan to perform uroflowmetry and bladder ultrasonography. Interpretation of retrograde ureteropyelography: Contrast was instilled in a retrograde fashion via the ureteroscope. There was some mild fullness of the upper collecting system. No obvious suspicious lesions were identified. There were no obvious filling defects that could be appreciated. Unobstructed drainage was observed fluoroscopically at the end of the case. Job#: [id number]
== END | disposition home or self-care (01) ==
LOC: OR 07:55
PROVIDERS: ATTEND Urology
DX: N20.0 Calculus of kidney (principal); N20.1 Calculus of ureter; N13.30 Unspecified hydronephrosis; N32.89 Other specified disorders of bladder; N28.89 Other specified disorders of kidney and ureter; Z46.6 Encounter for fitting and adjustment of urinary device; N40.1 Benign prostatic hyperplasia with lower urinary tract symptoms; N13.8 Other obstructive and reflux uropathy; R39.14 Feeling of incomplete bladder emptying; R35.1 Nocturia; R39.12 Poor urinary stream; N43.3 Hydrocele, unspecified; N32.81 Overactive bladder; N39.41 Urge incontinence; R97.20 Elevated prostate specific antigen [PSA]; Z68.41 Body mass index [BMI] 40.0-44.9, adult; Z87.891 Personal history of nicotine dependence; Z84.1 Family history of disorders of kidney and ureter
CPT/HCPCS: 36415; 50590; 52352; 74018; 80048; 83970; 84550; 85025; 88300; 93005; J0696; J1100; J1580; J2001; J2250; J2405